=== PATIENT | male | born 1955 | race Caucasian/White ===

== ENCOUNTER 2019-09-11 07:46 | Outpatient (CLI) | payer MEDICARE, BC, OTHER ==
[2019-09-11 11:29] LABS: Hemoglobin 14.4 g/dL (14.0-18.0); Mean Corpuscular HGB CONC 32.8 g/dL (32.0-36.0); Mean Corpuscular Hemoglobin 32.7 pg (27.0-31.0); Mean Corpuscular Volume 99.6 fL (78.0-98.0); Mean Platelet Volume 8.7 fL (7.4-10.4); Platelet Count 163 thou/uL (130-400); RBC Distribution Width 12.1 % (11.5-14.5); White Blood Cell (WBC) Count 5.2 thou/uL (4.8-10.8)
[2019-09-11 11:35] LABS: INR-International Normal Ratio 0.9; PTT 28.5 sec (22.9-36.1); Prothrombin Time 11.9 sec (12.0-14.7)
[2019-09-11 18:09] LABS: SARS-CoV-2 MS2 Positive; SARS-CoV-2 N Gene Negative; SARS-CoV-2 S Gene Negative; SARS-CoV-2 orf1ab Negative
== END 2019-09-11 07:47 | disposition home or self-care (01) ==
LOC: LABBT 07:46
PROVIDERS: ATTEND Neurological Surgery
DX: Z01.812 Encounter for preprocedural laboratory examination (principal); Z11.59 Encounter for screening for other viral diseases; M48.062 Spinal stenosis, lumbar region with neurogenic claudication
CPT/HCPCS: 85027; 85610; 85730; U0003; 87635

== ENCOUNTER 2019-09-14 05:42 | Observation (INO) | payer MEDICARE, BC ==
[2019-09-11 10:00] VITALS: BMI 25.8
[2019-09-14] MEDS ORDERED: Clindamycin/D5W 900 mg/50 ml Premix Bag ONE (06:02)
[2019-09-14] MEDS ORDERED: Levofloxacin 500 mg/D5W 100 ml Premix Bag ONE (06:03)
[2019-09-14] MEDS ORDERED: EPINEPHrine 1 MG/ML AMP ONE (06:12)
[2019-09-14] MEDS ORDERED: Bupivacaine PF 0.5% 30 ML VIAL ONE (06:12)
[2019-09-14] MEDS ORDERED: Thrombin 5000 UNITS/5 ML VIAL ONE (06:12)
[2019-09-14] MEDS ORDERED: Ketamine 50 MG/ML (10ML VIAL) ONE (06:40)
[2019-09-14] MEDS ORDERED: Fentanyl 250 MCG/5 ML VIAL ONE (06:40)
[2019-09-14] MEDS ORDERED: SUGAMMADEX SODIUM 200 MG/2 ML VIAL ONE (09:18)
--- NOTE | 2019-09-14 10:24 | OP ---
DATE OF PROCEDURE: 09/14/2019 BROKERAGE COORDINATOR: Haim Webster PA-C PREOPERATIVE INDICATION: Treat pain and prevent neurological deterioration. PREOPERATIVE DIAGNOSIS: Multilevel lumbar stenosis above the previous fusion with severe neurogenic claudication. POSTOPERATIVE DIAGNOSIS: Multilevel lumbar stenosis above the previous fusion with severe neurogenic claudication. PROCEDURES PERFORMED: Reopening lumbar incision, decompressive laminectomy, medial facetectomy and foraminotomy, L2-L3 and L3-L4. PREOPERATIVE MEDICATIONS: Levaquin 500 mg IV, clindamycin 900 mg IV. DRAIN NUMBER: Zero. DRAIN TYPE: None. DESCRIPTION OF PROCEDURE: The patient was brought to the operating room. General endotracheal anesthesia was induced. The patient was positioned prone on the operating table with his chest and hips supported by gel-filled chest rolls. A lateral fluoro radiograph was used to visualize the instrumentation and plan our incision above it. The lumbar skin was sterilely prepped and draped. We opened with a 10 blade knife and we controlled bleeding with bipolar and monopolar cautery. We used monopolar cautery to dissect through subcutaneous tissues and scar tissue to the thoracodorsal fascia. We incised the fascia in the midline and reflected the paraspinal muscles and scar tissue off the spinous process and lamina of L2, L3, and the remnant of L4. Self-retaining retractor was placed in the lateral fluoro radiograph to confirm the levels upon which we were operating. We then used an Adson rongeur to remove the spinous process of L2 and L3 and the top of L4. Kerrison rongeurs identified the ventral aspect of the lamina and Kerrison rongeur was used to fashion a laminectomy. We performed our laminectomy down the midline and widened our laminectomy defect into or lateral to the dura. We performed foraminotomies to ensure the L2, L3, and L4 nerve roots were all decompressed. When removing the top of the L4 lamina, we had to work arduously the around the instrumentation, which had bone grow over it. The rods and this that were medial to the pedicle screws, so this was affecting our access to the top of the L4 lamina with enough scar tissue dissection and Kerrison work, we decompressed all the way past the pedicles of L4. We performed foraminotomies of the L4 nerve roots. We made sure Canales ball probe could pass out the L2 foramen, L3 foramen, and L4 foramen with the nerves. We made sure the lateral recesses were decompressed by performing medial facetectomies. Then, we turned our attention to closure. We waxed the bone edges, controlled epidural bleeding with gentle bipolar cautery and infused local anesthetic in the paraspinal muscles. We irrigated with bacitracin irrigation. We treated the wound with vancomycin powder and we closed in anatomical layers. A sterile dressing was applied. This was a clean case, no contamination. Job ID: [id number]
[2019-09-14] MEDS ORDERED: Mag-Al 1200 mg/1200 mg/30 ML UDCUP PO PRN (10:41)
[2019-09-14] MEDS ORDERED: Scopolamine 1.5 mg/72 hour Patch TD PRN (10:41)
[2019-09-14] MEDS ORDERED: Tamsulosin HCl 0.4 MG CAP PO PRN (10:41)
[2019-09-14] MEDS ORDERED: Ondansetron PF 4 MG/2 ML Vial IVP PRN (10:41)
[2019-09-14] MEDS ORDERED: Promethazine 25 MG TAB PO PRN (10:41)
[2019-09-14] MEDS ORDERED: Acetaminophen 325 MG TAB PO PRN (10:41)
[2019-09-14] MEDS ORDERED: Milk Of Magnesia 30 ML UDCUP PO PRN (10:41)
[2019-09-14] MEDS ORDERED: diphenhydrAMINE 25 MG CAP PO PRN (10:41)
[2019-09-14] MEDS ORDERED: HYDROcodone/Acetaminophen 10/325 mg Tablet PO PRN (10:51)
[2019-09-14] MEDS ORDERED: Fentanyl 100 MCG/2 ML VIAL SLOW IVP PRN ×2 (10:55→10:56)
[2019-09-14] MEDS ORDERED: Fentanyl 100 MCG/2 ML VIAL ONE ×2 (11:00→11:11)
[2019-09-14] MEDS ORDERED: HYDROmorphone 0.5 MG/0.5 ML SYRINGE ONE ×2 (11:25→11:43)
[2019-09-14] MEDS ORDERED: Rocuronium Bromide 10 MG/ML (10ML VIAL) ONE (12:52)
[2019-09-14] MEDS ORDERED: Ondansetron PF 4 MG/2 ML Vial ONE (12:52)
[2019-09-14] MEDS ORDERED: EPHEDRINE 25 MG/5 ML SYRINGE ONE (12:52)
[2019-09-14] MEDS ORDERED: Lidocaine 1% PF 5 ML VIAL ONE (12:52)
[2019-09-14] MEDS ORDERED: Dexamethasone 20 MG/5 ML VIAL ONE (12:52)
[2019-09-14] MEDS ORDERED: Ketorolac Tromethamine 30 MG/ML VIAL ONE (12:52)
[2019-09-14] MEDS ORDERED: PROPOFOL 200 MG/20 ML VIAL ONE (12:52)
[2019-09-14] MEDS: Sodium Chloride 0.9% 1,000 ML IV SCH ×2 (13:53→22:31)
[2019-09-14] MEDS: Clindamycin/D5W 900 MG in Premix Bag 1 BAG IVPB SCH ×2 (14:13→22:20)
[2019-09-14] MEDS: Propranolol 40 MG TAB PO SCH ×2 (16:04→22:21)
[2019-09-14] MEDS: tiZANidine HCl 4 MG TAB PO PRN (16:12)
[2019-09-14] MEDS: HYDROcodone/Acetaminophen 10/325 mg Tablet PO PRN ×2 (18:15→22:25)
[2019-09-14] MEDS ORDERED: Atorvastatin Calcium 40 MG TAB PO SCH (21:00)
[2019-09-14] MEDS ORDERED: Divalproex Sodium 250 MG (DR) TAB PO SCH (21:00)
[2019-09-14] MEDS ORDERED: Prazosin HCl 1 MG CAP PO SCH (21:00)
[2019-09-14] MEDS ORDERED: Sodium Chloride 0.9% 1,000 ML IV SCH (21:45)
[2019-09-14] MEDS: ALPRAZolam 0.5 MG TAB PO SCH ×2 (22:21→23:00)
[2019-09-14 22:28] LABS: Anion Gap 10 mmol/L (10-20); BUN (Urea Nitrogen) 12 mg/dL (8.4-25.7); Calc. Creatinine Clearance 116 mL/min (70-130); Calcium 7.7 mg/dL (7.8-10.44); Carbon Dioxide 25 mmol/L (23-31); Chloride 106 mmol/L (98-107); Estimated GFR-MDRD Greater than 90; Glucose 112 mg/dL (80-115); Potassium 4.3 mmol/L (3.5-5.1); Sodium 137 mmol/L (136-145)
[2019-09-14] MEDS ORDERED: Ketorolac Tromethamine 30 MG/ML VIAL IVP PRN (22:48)
[2019-09-14] MEDS ORDERED: Ketorolac Tromethamine 30 MG/ML VIAL IVP SCH (23:00)
[2019-09-15] MEDS: tiZANidine HCl 4 MG TAB PO PRN (02:14)
[2019-09-15 03:43] VITALS: TEMP 97.6
--- NOTE | 2019-09-15 06:58 | PRG ---
DATE OF SERVICE: 09/15/2019 Per Mederos this morning in his hospital room. He stayed in the hospital last night and was already ambulating even before bedtime. His back is sore, but he does not report any pain in his legs. His vital signs have been stable. There is a bit of low blood pressure first, but now it is in the 110s to 120s. There is no new neurological deficit. Mr. Mederos is safe for activities of daily living. He can be discharged today. He is likely to happen this morning or by lunchtime. Job ID: [id number]
[2019-09-15 08:22] VITALS: BP 122/76
[2019-09-15] MEDS: HYDROcodone/Acetaminophen 10/325 mg Tablet PO PRN (09:14)
[2019-09-15] MEDS: Propranolol 40 MG TAB PO SCH (09:15)
[2019-09-15] MEDS: Sodium Chloride 0.9% 1,000 ML IV SCH (09:16)
[2019-09-15] MEDS ORDERED: Divalproex Sodium 250 MG (DR) TAB PO SCH (21:00)
== END 2019-09-15 12:30 | disposition home or self-care (01) ==
LOC: SDC 05:42 → SURG A 12:33 → SDC 16:24
PROVIDERS: ADMIT Neurological Surgery; ATTEND Neurological Surgery
PROC: 01NB0ZZ Release Lumbar Nerve, Open Approach (ICD-10-PCS; principal; 2019-09-14)
DX: M48.062 Spinal stenosis, lumbar region with neurogenic claudication (principal); M51.36 Other intervertebral disc degeneration, lumbar region; E78.5 Hyperlipidemia, unspecified; G25.0 Essential tremor; F43.10 Post-traumatic stress disorder, unspecified; F32.9 Major depressive disorder, single episode, unspecified; F41.9 Anxiety disorder, unspecified; F17.200 Nicotine dependence, unspecified, uncomplicated; G89.29 Other chronic pain; Z79.899 Other long term (current) drug therapy; Z88.0 Allergy status to penicillin; Z88.5 Allergy status to narcotic agent; Z96.82 Presence of neurostimulator; Z98.1 Arthrodesis status
CPT/HCPCS: 63047; 63048; 76000; 80048; 96361; 96365; 96366; 96375 ×2; 97139 ×2; G0378 ×2; 36415; J0171; J1100; J1170; J1885; J1956; J2001; J2405; J2704; J3010; J3370; J3490; S0020

== ENCOUNTER 2019-12-07 08:14 | Outpatient (CLI) | payer MEDICARE, BC, OTHER ==
[2019-12-07 16:10] LABS: Hemoglobin 13.9 g/dL (14.0-18.0); Mean Corpuscular Hemoglobin 32.1 pg (27.0-31.0); Mean Corpuscular Volume 97.3 fL (78.0-98.0); Mean Platelet Volume 9.1 fL (7.4-10.4); Platelet Count 169 thou/uL (130-400); RBC Distribution Width 12.5 % (11.5-14.5); Red Blood Cell (RBC) Count 4.32 mill/uL (4.70-6.10); White Blood Cell (WBC) Count 5.1 thou/uL (4.8-10.8)
[2019-12-07 16:26] LABS: PTT 29.3 sec (22.9-36.1)
[2019-12-07 16:27] LABS: INR-International Normal Ratio 0.9; Prothrombin Time 12.4 sec (12.0-14.7)
[2019-12-08 12:26] LABS: SARS-CoV-2 MS2 Positive; SARS-CoV-2 N Gene Negative; SARS-CoV-2 S Gene Negative; SARS-CoV-2 by NAA Not Detected (NotDetected); SARS-CoV-2 orf1ab Negative
== END 2019-12-07 08:15 | disposition home or self-care (01) ==
LOC: LABBT 08:14
PROVIDERS: ATTEND Neurological Surgery
DX: Z01.812 Encounter for preprocedural laboratory examination (principal); M50.123 Cervical disc disorder at C6-C7 level with radiculopathy; Z20.828 Contact with and (suspected) exposure to other viral communicable diseases; Z96.82 Presence of neurostimulator
CPT/HCPCS: 85027; 85610; 85730; U0003; 87635

== ENCOUNTER 2019-12-10 09:18 | Day surgery (SDC) | payer MEDICARE, BC ==
[2019-12-08 16:07] VITALS: BMI 25.1
--- NOTE | 2019-12-09 19:34 | HP ---
REASON FOR H AND P: Surgery on 12/10/2019. Case #[id number]. CHIEF COMPLAINT: Neck pain radiating into his arms and bilateral middle fingers. HISTORY OF PRESENT ILLNESS: Mr. Mederos is a 64-year-old gentleman with neck, arm, and hand pain with numbness. He complains of pain into his triceps and bilateral finger extensors along with weakness, numbness in both of his hands and in his index and middle finger. This is likely a C7 radiculopathy, noted foraminal stenosis at C6-C7 on his myelogram. He has tried injections, traction and physical therapy with no lasting relief and would like to proceed with surgery. REVIEW OF SYSTEMS: CONSTITUTIONAL: Denies fever or chills. ENT: Denies change in vision or hearing. CARDIAC: Denies chest pain, shortness of breath, or diaphoresis. PULMONARY: Denies shortness of breath, cough, or hemoptysis. GI: Denies abdominal pain, nausea, vomiting, diarrhea, or change in stool formation and consistency. : Denies trouble with urination, frequency of urination, or bloody urine. SKIN: Denies skin rash, bruising, bleeding, or skin masses. MUSCULOSKELETAL: As per history of present illness. NEUROLOGIC: As per history of present illness. PSYCHOLOGIC: Denies anxiety, depression, or behavior changes. MEDICAL HISTORY: Anxiety, depression, PTSD, hyperlipidemia, chronic pain, headaches, and history of head trauma. SURGICAL HISTORY: Deep brain stimulation in 2018 and 2019, right and left shoulder rotator cuff repair, left knee lumbar fusion in 2000, laminectomy on 09/14/2019. HOSPITALIZATIONS: As above surgeries. FAMILY HISTORY: Father , diagnosed with heart disease. Mother alive. SOCIAL HISTORY: Tobacco use, yes. Denies illicit drug use or alcohol use. MEDICATIONS: Tizanidine 4 mg. ALLERGIES: PENICILLIN AND MORPHINE. PHYSICAL EXAMINATION: VITAL SIGNS: Height 5 feet 10 inches, weight 190 pounds, and BMI 27.3. HEENT: Pupils are equal. Extraocular movements are intact. NECK: Soft and supple. No masses are noted. Range of motion is intact, slightly painful. NEUROLOGIC: Awake, alert, and oriented x3. Memory, attention, fund of knowledge normal. Cranial nerves grossly intact. Gait and station are normal. Motor exam showed weakness in FE on both sides, and weakness in triceps. Strength in the iliopsoas interossei. Sensory exam shows loss of C7 sensation on both sides. Reflex exam shows absent triceps reflexes. IMAGING: Myelogram of the C-spine. Foraminal stenosis severe at C6-C7, mild everywhere else with no cord compression. X-rays, flexion-extension views are stable. ASSESSMENT: Cervical disk disorder at C6-C7 level with radiculopathy. PLAN: 1. ACDF C6-C7. 2. Preop labs CBC, PT, PTT, and COVID-19. 3. Clearance. 4. DBS should be turned off for surgery, he had to be careful not to disrupt the leads. INFORMED CONSENT: We discussed the indications, risks, benefits, alternatives, and expected results from surgery. The risks discussed included, but were not limited to, bleeding, infection, CSF leak, nerve damage, weakness, swallowing trouble, feeding tube placement, tracheal injury, esophageal injury, vocal cord injury, spinal cord incontinence, paralysis, ventilator dependency, wheelchair dependency, stroke, loss of vision, carotid artery injury, jugular vein injury, hardware misplacement, cardiopulmonary complications of anesthesia or . Long-term complications discussed included, but were not limited to hardware failure in the generation of surrounding disk. He understands the risks and is willing to proceed. Job ID: [id number]
[2019-12-10] MEDS ORDERED: Levofloxacin 500 mg/D5W 100 ml Premix Bag ONE (09:38)
[2019-12-10] MEDS ORDERED: Clindamycin/D5W 900 mg/50 ml Premix Bag ONE ×2 (09:38→17:03)
[2019-12-10] MEDS ORDERED: Metoclopramide HCl 10 MG/2 ML VIAL ONE (10:41)
[2019-12-10] MEDS ORDERED: Rocuronium Bromide 10 MG/ML (10ML VIAL) ONE (10:41)
[2019-12-10] MEDS ORDERED: Ketorolac Tromethamine 30 MG/ML VIAL ONE (10:41)
[2019-12-10] MEDS ORDERED: PROPOFOL 200 MG/20 ML VIAL ONE (10:41)
[2019-12-10] MEDS ORDERED: PHENYLEPHRINE-NS 100 MCG/ML 10 ML SYRINGE ONE (10:41)
[2019-12-10] MEDS ORDERED: Ondansetron PF 4 MG/2 ML Vial ONE (10:41)
[2019-12-10] MEDS ORDERED: Dexamethasone 20 MG/5 ML VIAL ONE (10:41)
[2019-12-10] MEDS ORDERED: Lidocaine 1% PF 5 ML VIAL ONE (10:41)
[2019-12-10] MEDS ORDERED: EPHEDRINE 25 MG/5 ML SYRINGE ONE (10:41)
[2019-12-10] MEDS ORDERED: Thrombin 5000 UNITS/5 ML VIAL ONE (11:31)
[2019-12-10] MEDS ORDERED: Famotidine 20 MG TAB ONE (11:31)
[2019-12-10] MEDS ORDERED: Midazolam HCl 2 mg/2 ml Vial ONE (11:31)
[2019-12-10] MEDS ORDERED: Sodium Chloride 0.9% 10 ML ONE (11:31)
[2019-12-10] MEDS ORDERED: Famotidine/PF 20 mg/2ml Vial ONE (11:32)
[2019-12-10] MEDS ORDERED: Fentanyl 100 MCG/2 ML VIAL ONE ×5 (11:39→15:39)
[2019-12-10] MEDS ORDERED: SUGAMMADEX SODIUM 200 MG/2 ML VIAL ONE ×2 (11:52→14:12)
[2019-12-10] MEDS ORDERED: Promethazine HCl 25 MG/ML VIAL SLOW IVP PRN (14:15)
[2019-12-10] MEDS ORDERED: Ondansetron HCl/PF 4 MG/2 ML Vial IVP PRN (14:15)
[2019-12-10] MEDS ORDERED: Promethazine HCl 25 MG/ML VIAL IM PRN (14:15)
--- NOTE | 2019-12-10 14:58 | OP ---
DATE OF PROCEDURE: 12/10/2019 FINISHER POLISHER: Haim Webster PA-C PREOPERATIVE INDICATION: Treat pain and prevent neurological deterioration. PREOPERATIVE DIAGNOSIS: Bilateral C7 radiculopathies from intervertebral disk disease and uncovertebral osteophytosis. POSTOPERATIVE DIAGNOSIS: Bilateral C7 radiculopathies from intervertebral disk disease and uncovertebral osteophytosis. PROCEDURES PERFORMED: 1. Anterior cervical diskectomy, intervertebral arthrodesis, and placement of intervertebral biomechanical device at C6-C7. 2. Anterior cervical plating C6-C7 (separate device from interbody device). 3. Local morselized autograft, morselized allograft. 4. Operating microscope. PREOPERATIVE MEDICATION: Ancef 2 g IV. DRAIN NUMBER: Zero. DRAIN TYPE: None. DESCRIPTION OF PROCEDURE: The patient was brought to the operating room. General endotracheal anesthesia was induced. The patient was positioned supine on the operating table with his head supported by a donut-shaped headrest. A lateral fluoro radiograph was used to plan our incision. The right side of the neck was sterilely prepped and draped. We opened with a 10 blade knife and controlled bleeding with bipolar cautery. We dissected sharply to the platysma and we cut this muscle in line with our incision. We continued our dissection medial to the sternocleidomastoid and lateral to the trachea and esophagus. We arrived at the prevertebral space. We placed a marker at C5-C6 and took lateral fluoro radiograph to confirm the levels upon which we were operating. We counted down from there to C6-C7 and elevated the longus colli muscles off the anterior surface of C6 and C7. Self-retaining retractors were placed beneath the muscles. Distraction pins were placed at C6 and C7, and we distracted across the intervening interspace. We incised the interspace with a 15 blade knife and we removed disk contents using curettes and rongeurs. The operating microscope was brought into the field. Under microscopic magnification and using microsurgical techniques, we removed the remainder of the intervertebral disk. We accessed the ventral epidural space with a microcurette. Using Kerrison rongeurs, we removed the posterior longitudinal ligament and posterior osteophytes across the entire interspace from one neural foramen all the way to the other. The osteophytes were cleaned of soft tissue attachments, morcellized into bone graft and added to demineralized bone matrix to form our fusion substrate. The endplates were prepared for grafting. We measured the height of the interspace to 7 mm with a bone rasp. A 7-mm PEEK intervertebral graft was brought into the field. This was loaded with demineralized bone matrix and morselized autograft and advanced into the interspace under radiographic guidance to the appropriate depth. We brought a separate anterior cervical plate into the field. This was a 14-mm plate and we drilled airplane pilot photogrammetry holes through the plate into the vertebral bodies. We affixed the plate using 14 mm screws. We engaged the locking mechanism over each of the 4 screws. This was done after the microscope was taken out. We irrigated with bacitracin irrigation. AP and lateral fluoro radiographs confirmed adequate positioning of our instrumentation. We irrigated once again with bacitracin irrigation. We closed the wound in anatomical layers. We applied a sterile dressing. This was a clean case, no contamination. (prior to the case, the deep brain stimulators were turned off. Bipolar cautery was used rather than monopolar cautery. The deep brain stimulators were turned back on after recovery). Job ID: [id number]
[2019-12-10] MEDS ORDERED: Tamsulosin HCl 0.4 MG CAP ONE (15:43)
[2019-12-10] MEDS ORDERED: HYDROcodone/Acetaminophen 5/325 mg Tablet ONE (16:47)
== END 2019-12-10 17:30 | disposition home or self-care (01) ==
LOC: SDC 09:18
PROVIDERS: ATTEND Neurological Surgery
PROC: 0RG10A0 Fusion of Cervical Vertebral Joint with Interbody Fusion Device, Anterior Approach, Anterior Column, Open Approach (ICD-10-PCS; principal; 2019-12-10)
PROC: 0RT30ZZ Resection of Cervical Vertebral Disc, Open Approach (ICD-10-PCS; 2019-12-10)
DX: M50.123 Cervical disc disorder at C6-C7 level with radiculopathy (principal); M48.02 Spinal stenosis, cervical region; M25.78 Osteophyte, vertebrae; F41.9 Anxiety disorder, unspecified; F32.9 Major depressive disorder, single episode, unspecified; F43.10 Post-traumatic stress disorder, unspecified; E78.5 Hyperlipidemia, unspecified; F17.290 Nicotine dependence, other tobacco product, uncomplicated; Z79.899 Other long term (current) drug therapy; Z88.0 Allergy status to penicillin; Z88.5 Allergy status to narcotic agent
CPT/HCPCS: 76000; C1713; C1776; J1100; J1885; J1956; J2250; J2405; J2704; J2765; J3010; J3490; S0028

== ENCOUNTER 2020-02-02 12:47 | Outpatient (CLI) | payer MEDICARE, BC ==
--- NOTE | 2020-02-02 13:20 | RAD ---
EXAM: Cervical spine radiographs 3 views PROVIDED CLINICAL HISTORY: Status post neck surgery COMPARISON: None FINDINGS: The odontoid is obscured. Cervical alignment appears normal. Vertebral body heights appear preserved. ACDF changes are seen at C6-7. No significant prevertebral soft tissue swelling apparent. Degenerative changes are noted. The visualized lung apices appear clear. Bilateral electronic devices overlie the upper chest. IMPRESSION: Postoperative and degenerative change involving the cervical spine.
== END 2020-02-02 12:48 | disposition home or self-care (01) ==
LOC: TBSIIMAG 12:47
PROVIDERS: ATTEND Neurological Surgery
DX: M50.20 Other cervical disc displacement, unspecified cervical region (principal); M47.812 Spondylosis without myelopathy or radiculopathy, cervical region; Z98.1 Arthrodesis status
CPT/HCPCS: 72040